=== PATIENT | female | born 1950 | race Caucasian/White ===

== ENCOUNTER 2018-04-12 14:19 | Emergency (ER) | payer MEDICARE ==
--- NOTE | 2018-04-12 15:39 | RADIOLOGY REPORT (SQ) ---
EXAM DESCRIPTION: SHOULDER RIGHT 2 OR MORE VIEWS COMPLETED DATE/TIME: 04/12/2018 3:21 pm REASON FOR STUDY: INJURY COMPARISON: None. NUMBER OF VIEWS: Three views. TECHNIQUE: Internal rotation, external rotation, and Y view images acquired of the right shoulder. LIMITATIONS: None. FINDINGS: MINERALIZATION: Osteoporotic BONES: No acute fracture or dislocation. No worrisome bone lesions. JOINTS: No glenohumeral joint malalignment. No widening at the AC joint VISUALIZED LUNGS AND RIBS: Right ribs are intact. There is consolidation throughout the lower half of the right hemithorax with right hilar mass. SOFT TISSUES: No radiopaque foreign body. OTHER: No other significant finding. IMPRESSION: Osteoporosis No acute fracture or malalignment right shoulder Opacified right lower hemithorax with right hilar mass TECHNICAL DOCUMENTATION: JOB ID: [id number] [employer]- All Rights Reserved Reading location - IP/workstation name: [email or web address]
--- NOTE | 2018-04-12 17:51 | ER Document Report ---
ED Medical Screen (RME) - General Chief Complaint: Slurred Speech Stated Complaint: ARN INJURY Time Seen by Provider: 04/12/18 17:35 Mode of Arrival: Wheelchair Information source: Patient, Relative Notes: Patient presents with a history of a fall 1 week ago. Patient states she fell in the bathroom and hit her head. Patient denies any loss of consciousness with that fall. Since then patient has felt weak and has not been able to move her right upper extremity. Patient's family member is at bedside and called EMS for concerns about possible stroke today. Family member states that patient 's speech has been slurred and different from her normal baseline since about 8: 00 this morning. Patient does complain of continued headache at this time. Patient has a history of stage IV lung cancer and COPD I have greeted and performed a rapid initial assessment of this patient. A comprehensive ED assessment and evaluation of the patient, analysis of test results and completion of the medical decision making process will be conducted by additional ED providers. TRAVEL OUTSIDE OF THE [place] IN LAST 30 DAYS: No - Related Data Allergies/Adverse Reactions: Sulfa (Sulfonamide Antibiotics) Allergy (Verified 04/12/18 14:22) Physical Exam - Vital signs Vitals: Temp Pulse Resp BP 97.4 F 92 18 130/81 H 04/12/18 15:28 04/12/18 15:28 04/12/18 15:28 04/12/18 15:28 - General General appearance: Appears well, Alert Notes: Weakness to right upper extremity, patient unable to lift arm Course - Vital Signs Vital signs: Temp Pulse Resp BP Pulse Ox 97.4 F 92 18 130/81 H 04/12/18 15:28 04/12/18 15:28 04/12/18 15:28 04/12/18 15:28
[2018-04-12 18:30] LABS: INTERNATIONAL RATION (INR) 1.14; PROTHROMBIN TIME 15.2 SEC (11.4-15.4)
[2018-04-12 18:31] LABS: PARTIAL THROMBOPLASTIN TIME 34.9 SEC (23.5-35.8)
[2018-04-12 18:33] LABS: HEMATOCRIT 33.3 % (36.0-47.0); HEMOGLOBIN 10.8 g/dL (12.0-15.5); MEAN CORPUSCULAR HEMOGLOBIN 25.5 pg (27.0-33.4); MEAN CORPUSCULAR HGB CONC 32.5 g/dL (32.0-36.0); MEAN CORPUSCULAR VOLUME 78 fl (80-97); PLATELET COUNT 757 10^3/uL (150-450); RED BLOOD COUNT 4.25 10^6/uL (3.72-5.28); RED CELL DISTRIBUTION WIDTH 17.4 % (11.5-14.0); WHITE BLOOD COUNT 19.2 10^3/uL (4.0-10.5)
[2018-04-12 18:44] LABS: ALANINE AMINOTRANSFERASE 15 U/L (9-52); ALBUMIN 2.9 g/dL (3.5-5.0); ALKALINE PHOSPHATASE 183 U/L (38-126); ANION GAP 9 (5-19); ASPARTATE AMINO TRANSFERASE 29 U/L (14-36); BILIRUBIN,DIRECT 0.4 mg/dL (0.0-0.4); BILIRUBIN,TOTAL 0.5 mg/dL (0.2-1.3); BLOOD UREA NITROGEN 50 mg/dL (7-20); CALCIUM 9.2 mg/dL (8.4-10.2); CARBON DIOXIDE 22 mmol/L (22-30); CHLORIDE 104 mmol/L (98-107); CREATINE KINASE 38 U/L (30-135); GLUCOSE 117 mg/dL (75-110); POTASSIUM 5.4 mmol/L (3.6-5.0); SODIUM 134.9 mmol/L (137-145)
[2018-04-12 18:55] LABS: CREATINE KINASE MB 1.89 ng/mL (<4.55); TROPONIN I 0.015 ng/mL
[2018-04-12 19:12] LABS: ABSOLUTE LYMPHOCYTES# (MANUAL) 0.8 10^3/uL (0.5-4.7); ABSOLUTE MONOCYTES # (MANUAL) 0.8 10^3/uL (0.1-1.4); ABSOLUTE NEUTROPHILS# (MANUAL) 16.9 10^3/uL (1.7-8.2); BASOPHILS % (MANUAL) 0 % (0-2); EOSINOPHILS % (MANUAL) 4 % (0-6); LYMPHOCYTES % (MANUAL) 4 % (13-45); MONOCYTES % (MANUAL) 4 % (3-13); SEGMENTED NEUTROPHILS % (MAN) 88 % (42-78); TOTAL CELLS COUNTED 100
[2018-04-12 19:13] LABS: ANISOCYTOSIS 1+; PLATELET COMMENT ADEQUATE; POLYCHROMASIA 1+
--- NOTE | 2018-04-12 19:13 | EKG REPORT ---
SEVERITY:- ABNORMAL ECG - SINUS TACHYCARDIA LOW VOLTAGE IN FRONTAL LEADS NONSPECIFIC T ABNORMALITIES, LATERAL LEADS : Confirmed by: Jocelyn Perkins MD 12-Apr-2018 19:12:49
[2018-04-12] MEDS ORDERED: NORMAL SALINE 1000 ML 1,000 ML IV ONE (19:14)
--- NOTE | 2018-04-12 19:14 | RADIOLOGY REPORT (SQ) ---
EXAM DESCRIPTION: CT HEAD WITHOUT COMPLETED DATE/TIME: 04/12/2018 6:59 pm REASON FOR STUDY: fall, HI, R arm weak, slurred speech, hx lung ca COMPARISON: None. TECHNIQUE: Axial images acquired through the brain without intravenous contrast. Images reviewed wi th bone, brain and subdural windows. Additional sagittal and coronal reconstructions were generated. Images stored on PACS. All CT scanners at this facility use dose modulation, iterative reconstruction, and/or weight based d osing when appropriate to reduce radiation dose to as low as reasonably achievable (ALARA). [facility]: Dose Right [facility]: CareDose [facility]: Dose Right [facility]: Teradose 4D [facility]: [employer] RADIATION DOSE: CT Rad equipment meets quality standard of care and radiation dose reduction techniq ues were employed. CTDIvol: 53.2 mGy. DLP: 911 mGy-cm. mGy. LIMITATIONS: None. FINDINGS: VENTRICLES: Normal size and contour. CEREBRUM: 2 cm diameter hyperdense mass with halo of vasogenic edema, left posterior frontal white ma tter worrisome for a brain metastatic lesion. Mild local mass effect. No midline shift. No CT evidence of acute large territory ischemic change. CEREBELLUM: No masses. No hemorrhage. No alteration of density. No evidence for acute infarction. EXTRAAXIAL SPACES: No fluid collections. No masses. ORBITS AND GLOBE: No intra- or extraconal masses. Normal contour of globe without masses. CALVARIUM: No fracture. PARANASAL SINUSES: No fluid or mucosal thickening. SOFT TISSUES: No mass or hematoma. OTHER: No other significant finding. IMPRESSION: 2 cm diameter hyperdense masses in the left frontal white matter with surrounding vasoge ginny edema and mass effect. Given the appearance of the right lung on shoulder films earlier today, t his probably represents a metastatic lesion from a right hilar lung tumor. EVIDENCE OF ACUTE STROKE: NO. COMMENT: Pertinent findings on the imaging study reported as a CRITICAL RESULT to TERESA CAUSEY at19:00 on 04/12/2018. Category of Critical Result: Brain mass worrisome for metastatic lesion. Quality ID # 436: Final reports with documentation of one or more dose reduction techniques (e.g., Au tomated exposure control, adjustment of the mA and/or kV according to patient size, use of iterative reconstruction technique) TECHNICAL DOCUMENTATION: JOB ID: [id number] [employer]- All Rights Reserved Reading location - IP/workstation name: [email or web address]
[2018-04-12 20:14] LABS: APPEARANCE,URINE CLOUDY; BILIRUBIN,URINE NEGATIVE (NEGATIVE); COLOR,URINE AMBER; GLUCOSE, URINE NEGATIVE (NEGATIVE); KETONES,URINE NEGATIVE (NEGATIVE); LEUKOCYTE ESTERASE,URINE SMALL (NEGATIVE); NITRITE,URINE NEGATIVE (NEGATIVE); PROTEIN,URINE 100 mg/dL (NEGATIVE); URINE SPECIFIC GRAVITY 1.018; UROBILINOGEN,URINE NEGATIVE mg/dL (<2.0)
--- NOTE | 2018-04-12 20:26 | RADIOLOGY REPORT (SQ) ---
EXAM DESCRIPTION: CHEST SINGLE VIEW COMPLETED DATE/TIME: 04/12/2018 7:21 pm REASON FOR STUDY: fall, head injury, slurred speech, hx lung ca COMPARISON: Right shoulder films same date EXAM PARAMETERS: NUMBER OF VIEWS: One view. TECHNIQUE: Single frontal radiographic view of the chest acquired. RADIATION DOSE: NA LIMITATIONS: None. FINDINGS: LUNGS AND PLEURA: Opacified right hemithorax with sparing of the right lung apex, from pl eural effusion and postobstructive collapse and consolidation in the right lung. Left lung clear. No pleural effusion. No right or left pneumothorax MEDIASTINUM AND HILAR STRUCTURES: Enlarged right hilum HEART AND VASCULAR STRUCTURES: Heart normal in size. Normal vasculature. BONES: No acute findings. HARDWARE: None in the chest. OTHER: No other significant finding. IMPRESSION: Opacified right hemithorax with sparing of the right lung apex from right hilar mass wit h postobstructive collapse and consolidation of the right lung. Right pleural effusion may present. TECHNICAL DOCUMENTATION: JOB ID: [id number] [employer]- All Rights Reserved Reading location - IP/workstation name: [email or web address]
--- NOTE | 2018-04-12 20:27 | RADIOLOGY REPORT (SQ) ---
EXAM DESCRIPTION: KNEE RIGHT 4 VIEWS COMPLETED DATE/TIME: 04/12/2018 7:21 pm REASON FOR STUDY: r knee pain COMPARISON: None. NUMBER OF VIEWS: Four views. TECHNIQUE: AP, lateral, and both oblique radiographic images acquired of the right knee. LIMITATIONS: None. FINDINGS: MINERALIZATION: Osteopenic BONES: No acute fracture or dislocation. No worrisome bone lesions. JOINT: No effusion. SOFT TISSUES: No soft tissue swelling. No radio-opaque foreign body. OTHER: No other significant finding. IMPRESSION: NEGATIVE STUDY OF THE RIGHT KNEE. NO RADIOGRAPHIC EVIDENCE OF ACUTE INJURY. TECHNICAL DOCUMENTATION: JOB ID: [id number] [employer]- All Rights Reserved Reading location - IP/workstation name: [email or web address]
--- NOTE | 2018-04-12 20:49 | ER Document Report ---
ED General - General Chief Complaint: Slurred Speech Stated Complaint: ARN INJURY Time Seen by Provider: 04/12/18 17:35 Mode of Arrival: Wheelchair Information source: Patient, Relative Notes: This is a 67-year-old female with a history of lung cancer status post radiation therapy 10 at [place] and is now on [facility]. Patient is followed by Dr. Woodard at [place] [facility]. 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 Patient presents because of a fall a few days ago. Since that time she has not been able to use her right arm. TRAVEL OUTSIDE OF THE [place] IN LAST 30 DAYS: No - HPI Onset: Last week Onset/Duration: Gradual Quality of pain: No pain Severity: None Pain Level: Denies Associated symptoms: Shortness of breath - Patient has known lung cancer. denies: Chest pain, Productive cough, Fever Exacerbated by: Walking Relieved by: Denies Similar symptoms previously: No Recently seen / treated by doctor: Yes - Related Data Allergies/Adverse Reactions: Sulfa (Sulfonamide Antibiotics) Allergy (Verified 04/12/18 14:22) Past Medical History - General Information source: Patient, Relative - Social History Smoking Status: Unknown if Ever Smoked Cigarette use (# per day): No Chew tobacco use (# tins/day): No Frequency of alcohol use: None Drug Abuse: None Lives with: Family Family History: None Patient has suicidal ideation: No Patient has homicidal ideation: No - Past Medical History Cardiac Medical History: Reports: None Pulmonary Medical History: Reports: Hx COPD, Other - Lung cancer EENT Medical History: Reports: None Neurological Medical History: Reports: None Endocrine Medical History: Reports: None Renal/ Medical History: Reports: None. Denies: Hx Peritoneal Dialysis Malignancy Medical History: Reports: None GI Medical History: Reports: None Musculoskeletal Medical History: Reports None Skin Medical History: Reports None Psychiatric Medical History: Reports: Hx Depression - anxiety Surgical Hx: Negative Review of Systems - Review of Systems Constitutional: denies: Chills, Fever EENT: No symptoms reported Cardiovascular: No symptoms reported Respiratory: See HPI Gastrointestinal: No symptoms reported Genitourinary: No symptoms reported Female Genitourinary: No symptoms reported Musculoskeletal: No symptoms reported Skin: No symptoms reported Hematologic/Lymphatic: No symptoms reported Neurological/Psychological: See HPI Physical Exam - Vital signs Vitals: Temp Pulse Resp BP 97.4 F 92 18 130/81 H 04/12/18 15:28 04/12/18 15:28 04/12/18 15:28 04/12/18 15:28 Notes: Physical exam: GENERAL: The 67-year-old female, alert and oriented 3, no acute distress HEAD: Atraumatic, normocephalic. EYES: Pupils equal round and reactive to light, extraocular movements intact, sclera anicteric, conjunctiva are normal. ENT: TMs normal, nares patent, oropharynx clear without exudates. Moist mucous membranes. NECK: Normal range of motion, supple without obvious mass or JVD. LUNGS: Decreased breath sounds on the right HEART: Regular rate and rhythm without murmurs, rubs or gallops. ABDOMEN: Soft, normoactive bowel sounds. No tenderness to palpation. No guarding, no rebound. No masses appreciated. EXTREMITIES: Normal range of motion, no pitting or edema. No clubbing or cyanosis. NEUROLOGICAL: Cranial nerves II through XII grossly intact. Patient has paralysis of the right upper extremity PSYCH: Normal mood, normal affect. SKIN: Warm, Dry, normal turgor, no rashes or lesions noted. Course - Re-evaluation Re-evalutation: 04/12/18 22:[address] Sanches at [place] (covering for Dr. Woodard the patient's oncologist) and discussed the new findings on CT, the findings on x-ray as well as the leukocytosis. Dr sanches recommended following up as an outpatient, putting the patient on Decadron 4 mg 3 times a day after meals, oral antibiotics. Plan for this patient would be following up with Dr. Woodard and getting radiation therapy of the brain. I then had a long conversation with the patient and her daughter at the bedside. The patient does not want radiation therapy and they are planning to look into hospice. I did give the patient a dose of IV levofloxacin and I will send her home on levofloxacin. She was given IV Decadron in the ER and I will write a prescription for oral Decadron. The plan will be for them to call follow-up with Dr. Woodard tomorrow (I will give them a copy of the labs and CT report) and they are in the process of looking into hospice. - Vital Signs Vital signs: Temp Pulse Resp BP Pulse Ox 97.4 F 102 H 31 H 122/63 90 L 04/12/18 15:28 04/12/18 21:00 04/12/18 22:01 04/12/18 22:00 04/12/18 22:01 - Laboratory Result Diagrams: 04/12/18 18:10 04/12/18 18:10 Laboratory results interpreted by me: 04/12/18 04/12/18 04/12/18 18:10 18:10 19:56 WBC 19.2 H Hgb 10.8 L Hct 33.3 L MCV 78 L MCH 25.5 L RDW 17.4 H Plt Count 757 H Seg Neuts % (Manual) 88 H Lymphocytes % (Manual) 4 L Abs Neuts (Manual) 16.9 H Absolute Eos (Manual) 0.8 H Sodium 134.9 L Potassium 5.4 H BUN 50 H Creatinine 1.28 H Est GFR ( Amer) 50 L Est GFR (Non-Af Amer) 41 L Glucose 117 H Alkaline Phosphatase 183 H Albumin 2.9 L Urine Protein 100 H Urine Blood SMALL H Ur Leukocyte Esterase SMALL H - Diagnostic Test Radiology reviewed: Image reviewed, Reports reviewed - CT of the head shows left frontal mass with vasogenic edema Discharge - Discharge Clinical Impression: New brain lesion Condition: Stable Disposition: HOME, SELF-CARE Additional Instructions: As we discussed, CT showed a new brain lesion on the left side of the brain which would correspond to the weakness on the right side. There was swelling around this mass and no goal of the Decadron is to reduce the swelling to hopefully get some function on the right side back. I did speak to her Dr. Maravilla's Who recommended following up with Dr. Woodard and as we discussed he did bring up radiation therapy as one likely therapy. He did have a white count which was a little elevated. I will give you an antibiotic just in case. You were given IV levofloxacin in the emergency room and this is a once a day antibiotic. Return to the emergency room for any problems. Prescriptions: Dexamethasone [Decadron 4 Mg Tablet] 4 mg PO TID #90 tablet Levofloxacin 500 mg PO DAILY #10 tablet
[2018-04-12] MEDS ORDERED: DEXAMETHASONE SOD PHOS INJ 10 MG/1 ML VIAL IV ONE (21:30)
[2018-04-12] MEDS ORDERED: LEVOFLOXACIN 500 MG/D5W RTU 500 MG/100 ML RTUPB IV ONE (21:40)
[2018-04-12 23:45] VITALS: BP 118/70
== END 2018-04-12 23:45 | disposition home or self-care (01) ==
LOC: ER 14:19
DX: G93.9 Disorder of brain, unspecified (principal); G83.21 Monoplegia of upper limb affecting right dominant side; C34.90 Malignant neoplasm of unspecified part of unspecified bronchus or lung; C79.70 Secondary malignant neoplasm of unspecified adrenal gland; D72.829 Elevated white blood cell count, unspecified; J44.9 Chronic obstructive pulmonary disease, unspecified; R06.02 Shortness of breath; Z92.3 Personal history of irradiation; Z88.2 Allergy status to sulfonamides; Z79.899 Other long term (current) drug therapy
CPT/HCPCS: 93005; 99285; 96375; 96365; 96366; 36415; 82553; 82550; 83735; 85025; 85610; 85730; 80053; 81001; 84484; 71045; 73564; 73030; 70450; 93010; J1956; J1100